=== PATIENT | male | born 1950 | race African-American/Black ===

== ENCOUNTER 2020-12-09 08:17 | Emergency (ER) | payer OTHER ==
[~2020-12-09] VITALS: Ht 188 cm; Wt 114.0 kg
[2020-12-09] MEDS ORDERED: SODIUM CHLORIDE 0.9% 1,000 ML IV ONE ×3 (08:45→15:00)
[2020-12-09 08:49] LABS: BG BASE EXCESS -8.9 mmol/L (-2.0-2.0); BG CARBOXYHEMOGLOBIN 0.3 % (0.5-1.5); BG DEOXYHEMOGLOBIN 7.2 % (0.0-5.0); BG METHEMOGLOBIN 0.4 % (0.0-1.5); BG OXYGEN SATURATION 92.7 % (92.0-98.5); BG OXYHEMOGLOBIN 92.1 % (94.0-97.0); BG PCO2 31.3 mmHg (35.0-45.0); BG PH 7.327 (7.350-7.450); BG PO2 68.5 mmHg (75.0-100.0); BG SAMPLE SITE RIGHT RADIAL; BG TOTAL HEMOGLOBIN 11.1 g/dL (12.0-18.0); BG VENT MODE ROOM AIR
[2020-12-09 08:58] LABS: BASOPHILS % 0.2 % (0.0-2.0); HEMATOCRIT. 31.4 % (42.0-52.0); LYMPHOCYTES % 12.5 % (20.0-50.0); MEAN CORPUSCULAR HEMOGLOBIN 23.3 pg (28.0-32.0); MEAN CORPUSCULAR VOLUME 72.8 fL (80.0-94.0); MONOCYTES % 8.4 % (2.0-8.0); NEUTROPHILS % 78.9 % (40.0-76.0); PLATELET 257 x1000/uL (130-400); RED BLOOD CELL COUNT 4.31 mill/uL (4.7-6.1)
[2020-12-09 09:07] LABS: CHLORIDE 102 mEq/L (98-107)
[2020-12-09 09:12] LABS: ETHANOL BLOOD < 10 mg/dL
[2020-12-09 09:17] LABS: BETA HYDROXYBUTYRATE 5.3 mMol/L (0.0-0.3)
[2020-12-09 09:53] LABS: CLARITY URINE CLEAR (CLEAR); COLOR URINE YELLOW (YELLOW); KETONES URINE 3+ (NEGATIVE); LEUKOCYTE ESTERASE URINE NEGATIVE (NEGATIVE); NITRITE URINE NEGATIVE (NEGATIVE); OCCULT BLOOD URINE 2+ (NEGATIVE); PROTEIN URINE 2+ (NEGATIVE); UROBILINOGEN URINE 0.2 E.U./dL (0.2-1.0)
[2020-12-09] MEDS ORDERED: HALOPERIDOL LACTATE 5MG/ML VIAL IM ONE (10:00)
[2020-12-09] MEDS ORDERED: INSULIN REGULAR (HUMULIN R) 300UNITS/3ML VIAL IV ONE ×2 (10:00→11:45)
[2020-12-09 10:10] LABS: METHADONE URINE SCREEN NEGATIVE (NEGATIVE); OPIATES URINE SCREEN NEGATIVE (NEGATIVE)
[2020-12-09 10:11] LABS: *AMPHETAMINES SCREEN URINE NEGATIVE (NEGATIVE); *BARBITURATES SCREEN URINE NEGATIVE (NEGATIVE); *BENZODIAZEPINES SCREEN URINE NEGATIVE (NEGATIVE); *COCAINE SCREEN URINE NEGATIVE (NEGATIVE); CANNABINOID URINE SCREEN NEGATIVE (NEGATIVE); PHENCYCLIDINE URINE SCREEN NEGATIVE (NEGATIVE)
[2020-12-09] MEDS ORDERED: LORAZEPAM 2MG/ML CPJ IM STA (10:24)
[2020-12-09] MEDS ORDERED: HYDRALAZINE 20MG/ML VIAL IV ONE (12:45)
[2020-12-09] MEDS ORDERED: ACETAMINOPHEN 650MG SUPP PR ONE (14:15)
[2020-12-09 15:29] VITALS: BP 168/88
[2020-12-09] MEDS ORDERED: VANCOMYCIN 1 G PREMIX 200 ML IV ONE (15:30)
[2020-12-09] MEDS: PIPERACILLIN/TAZ 3.375G PREMIX 50 ML IV ONE ×2 (15:38→15:43)
[2020-12-09 15:40] LABS: T4 FREE 0.9 ng/dL (0.76-1.46)
== END 2020-12-09 16:03 | disposition short-term general hospital (02) ==
LOC: ER 08:17
DX: E23.7 Disorder of pituitary gland, unspecified (principal); E11.9 Type 2 diabetes mellitus without complications; I10 Essential (primary) hypertension
CPT/HCPCS: 36415; 36600; 70450; 71045; 80053; 80305; 80320; 81003; 82010; 82375; 82805; 82962; 84145; 84439; 84443; 85025; 96361; 96372; 96374; 96375; 96376; 99285; J0360; J1630; J1815; J2060; J2543; J7030; A4315; G0480